=== PATIENT | female | born 1985 | race Caucasian/White ===

== ENCOUNTER 2021-03-11 10:45 | Day surgery (SDC) | payer OTHER ==
[~2021-03-11] VITALS: Ht 170.2 cm; Wt 78.4 kg
[~2021-03-11 10:45] MED LIST: ACETAMINOPHEN *IV* 1,000 MG IV ONE; LR 1,000 ML IV ONE; SCOPOLAMINE 1MG TRANSDERMAL PATCH TOP SCH; SYNT25TA PO
[2021-03-11 11:23] LABS: HEMATOCRIT 44.7 % (36.0-47.0); HEMOGLOBIN 14.5 g/dl (12.0-15.5); MEAN CORPUSCULAR HEMOGLOBIN 30.8 pg (27.0-33.0); MEAN CORPUSCULAR HGB CONC 32.4 g/dl (32.0-36.5); MEAN CORPUSCULAR VOLUME 94.9 fl (80.0-96.0); PLATELET COUNT, AUTOMATED 345 10^3/uL (150-450); RED BLOOD COUNT 4.71 10^6/uL (4.00-5.40); WHITE BLOOD COUNT 6.7 10^3/uL (4.0-10.0)
[2021-03-11] MEDS ORDERED: ACET1TAB55 PO (11:34)
[2021-03-11 11:57] LABS: ALBUMIN 4.1 GM/DL (3.2-5.2); ALT/SGPT 21 U/L (12-78); BILIRUBIN,TOTAL 0.7 MG/DL (0.2-1.0); BLOOD UREA NITROGEN 12 MG/DL (7-18); CALCIUM LEVEL 9.9 MG/DL (8.5-10.1); CARBON DIOXIDE LEVEL 27 MEQ/L (21-32); CHLORIDE LEVEL 107 MEQ/L (98-107); CREATININE FOR GFR 0.82 MG/DL (0.55-1.30); GLOMERULAR FILTRATION RATE > 60.0 (>60); GLUCOSE, FASTING 89 MG/DL (70-100); POTASSIUM SERUM 4.7 MEQ/L (3.5-5.1); SODIUM LEVEL 140 MEQ/L (136-145)
[2021-03-11] MEDS ORDERED: propofoL 200 MG/20 ML VIAL As Ordered ONE ×3 (14:38→15:35)
[2021-03-11] MEDS ORDERED: ROCURONIUM BROMIDE 50 MG/5 ML VIAL As Ordered ONE (14:38)
[2021-03-11] MEDS ORDERED: LIDOCAINE 2% 100MG/5ML SDV (FOR ANES.) As Ordered ONE (14:38)
[2021-03-11] MEDS ORDERED: fentaNYL 100 MCG/2 ML INJECTION (J3010) As Ordered ONE ×2 (14:38→15:40)
[2021-03-11] MEDS ORDERED: dexameTHASONE 4 MG/ML 1ML VIAL (J1100 PER 1MG) As Ordered ONE ×2 (14:38→15:37)
[2021-03-11] MEDS ORDERED: MIDAZOLAM INJ 2MG/2ML VIAL (J2250 PER 1MG) As Ordered ONE (14:40)
--- NOTE | 2021-03-11 15:01 | ROOPDOC ---
[facility] Report Of Operation Report of Operation DATE OF PROCEDURE: 03/11/21 PREPROCEDURE DIAGNOSES: chronic pelvic pain POSTPROCEDURE DIAGNOSES: chronic pelvic pain, pelvic adhesive disease, colonic overload, suspected endometriosis PROCEDURE: laparoscopic lysis of pelvic adhesions, peritoneal biopsy SURGEON: Chip Crandall DO EVENT MARKETING ASSISTANT: Baldo Gillette MD ANESTHESIA: general ESTIMATED BLOOD LOSS: Approximately 3 mL. COMPLICATIONS: none REMARKS: none PROCEDURE NOTE: The risks, benefits, and alternatives of the procedure were discussed and written consent was obtained. The patient was taken to the OR where she underwent general anesthesia. She was positioned in low lithotomy in the yellow fins with her arms tucked. The abdomen, vagina, and perineum were prepped and draped in a sterile fashion. A cody was placed in the bladder. A final time out was performed. The inframbulical fold was identified and 0.25% marcaine was injected. A 5mm incision was made with a scalpel and using the direct technique a 5mm port was placed. The opening pressure was 5 mmHg and there was no trauma below the entry site. An anatomy survey was performed; the liver, gallbladder and stomach edge appeared normal. The appendix was not visualized. The bilateral ovaries appeared normal. The peritoneum had scar tissue at appropriate locations given prior hysterectomy. The sigmoid colon was adhered to the anterior abdominal wall. The rectum and bladder were adheared over the vaginal cuff and the ureter was r unning between them. The was a single gunpowder lesion on the left peritoneal wall superior to the ovary. The area 2cm superior and medial to the area 2cm superior and medial to the bilateral ASIS was identified via transillumination and 0.25% marcaine was injected. A 5mm incision was made with a scalpel and a 5mm ports placed under direct visualization. The monopolar sheers were used to lyse the filmy adhesions from the sigmoid to the anterior wall. The site was hemostatic. The biopsy forceps were used to take a peritoneal biopsy of the gunpowder lesion on the left peritoneal side wall. This was hemostatic with the aid of monopolar cautery. The pneumoperitoneum was released and the operative sites remained hemostatic. The accessory ports were removed under direct visualization and remained hemostatic. The port sites were closed with 3-0 vicyl and secured with dermabond. There were no complications. The sponge, lap, and needle counts were correct x2. The patient was transferred to the PACU in stable condition. CHIP CRANDALL DO Mar 11, 2021 15:01
[2021-03-11] MEDS ORDERED: BUPIVACAINE HCL 0.5% 10ML VIAL As Ordered ONE (15:07)
[2021-03-11] MEDS ORDERED: KETAMINE HCL 200 MG/20 ML VIAL As Ordered ONE (15:16)
[2021-03-11] MEDS ORDERED: METOCLOPRAMIDE INJ 10MG/2ML VIAL (J2765 PER 1) As Ordered ONE (15:37)
[2021-03-11] MEDS ORDERED: diphenhydrAMINE 50MG/ML VIAL (J1200) As Ordered ONE (15:37)
[2021-03-11] MEDS ORDERED: ACETAMINOPHEN 1000MG 100ML IV BTL (OFIRMEV) (J0131 PER 10MG) As Ordered ONE (15:43)
[2021-03-11] MEDS ORDERED: KETOROLAC 30 MG/ML 1ML VIAL IV PRN (15:44)
[2021-03-11] MEDS ORDERED: SUGAMMADEX SODIUM 500 MG/5 ML VIAL (BRIDION) As Ordered ONE (15:44)
[2021-03-11] MEDS ORDERED: KETOROLAC 60MG 2ML VIAL As Ordered ONE (15:44)
--- NOTE | 2021-03-11 16:09 | IPNPDOC ---
Text Note Date of Service The patient was seen on 03/11/21. NOTE To whom it may concern; Ms. Zhang was seen at [facility] on 03/11/21 for surgery. She will require 14 days of convalescent leave for recovery. She should not participate in PT during this time. She should have a total of 30d of PT at her own pace. Chip RODRIGUES DO [facility] LILIA VS,Samir, I+O VS, Samir, I+O Laboratory Tests 03/11/21 10:49 Vital Signs Date Time Temp Pulse Resp B/P (MAP) Pulse Ox O2 Delivery O2 Flow Rate FiO2 03/11/21 11:35 97.5 64 18 106/72 (83) 100 Room Air CHIP CRANDALL DO Mar 11, 2021 16:09
[2021-03-11] MEDS ORDERED: fentaNYL 100 MCG/2 ML INJECTION (J3010) IV PRN (16:25)
[2021-03-11] MEDS ORDERED: ONDANSETRON 4MG/2ML VIAL IV PRN (16:25)
[2021-03-11] MEDS ORDERED: LR 1,000 ML IV SCH (16:25)
[2021-03-11] MEDS ORDERED: METOCLOPRAMIDE INJ 10MG/2ML VIAL (J2765 PER 1) IV PRN (16:25)
[2021-03-11] MEDS ORDERED: PERCOCET 5MG/325MG TAB PO PRN (16:25)
[2021-03-11] MEDS ORDERED: oxyCODONE 5MG TAB PO PRN ×2 (16:25→16:30)
[2021-03-11 18:15] VITALS: BP 106/65
[2021-03-12] MEDS ORDERED: IBUPROFEN 600MG TAB PO SCH
== END 2021-03-11 18:38 | disposition home or self-care (01) ==
LOC: M SDC 10:45
PROVIDERS: ATTEND Obstetrics & Gynecology
DX: R10.2 Pelvic and perineal pain (principal); N73.6 Female pelvic peritoneal adhesions (postinfective); E03.9 Hypothyroidism, unspecified; Z79.899 Other long term (current) drug therapy; Z90.710 Acquired absence of both cervix and uterus
CPT/HCPCS: 49321; 80053; 85027; 86850; 86900; 86901; 88305; J0131; J1100; J1200; J1885; J2250; J2765; J3010